=== PATIENT | male | born 1985 | race Caucasian/White ===

== ENCOUNTER 2019-10-05 11:39 | Emergency (ER) | payer OTHER ==
[~2019-10-05] VITALS: Ht 180.3 cm; Wt 79.4 kg
[2019-10-05] MEDS ORDERED: DOXYCYCLINE HY100 MG PO (12:02)
--- NOTE | 2019-10-05 23:44 | EKG ---
[facility] [address] [facility] [facility] [place], [place] [address] Signed Sinus bradycardia Otherwise normal ECG No previous ECGs available Confirmed by ZAKIYA SAVAGE MD ([id number] on 10/05/2019 11:43:52 PM Electronically Signed By: ZAKIYA SAVAGE MD 10/05/19 2344 PATIENT NAME: LEAH HONG Electrocardiogram DATE OF : 81 PHYSICIAN: ZAKIYA SAVAGE MD REPORT #: [id number] REPORT IS CONFIDENTIAL AND NOT TO BE RELEASED WITHOUT AUTHORIZATION
== END 2019-10-05 13:29 | disposition home or self-care (01) ==
LOC: ED 11:39
DX: R55 Syncope and collapse (principal)
CPT/HCPCS: 80053; 85025; 93005; 93010; 99284-25